=== PATIENT | male | born 1990 | race Caucasian/White ===

== ENCOUNTER 2020-08-20 06:48 | Outpatient (NON) | payer OTHER, SELFPAY ==
[2020-08-20 23:56] LABS: SARS-CoV-2 RNA PCR Negative
== END 2020-08-20 06:49 ==
PROVIDERS: PCP Registered Nurse; Visit Provider Registered Nurse
DX: J32.9 Chronic sinusitis, unspecified (principal); R51.9 Headache, unspecified
CPT/HCPCS: 87635; C9803; U0003